=== PATIENT | female | born 1985 | race Caucasian/White ===

== ENCOUNTER → 2019-03-27 08:40 | Outpatient (BNVA) | payer BC, SELFPAY | PROVIDERS: Family Provider Registered Nurse; PCP Registered Nurse; Visit Provider Obstetrics & Gynecology | DX: R10.2 Pelvic and perineal pain (principal) | CPT/HCPCS: 81003; 87086 ==

== ENCOUNTER 2019-11-28 08:25 | Outpatient (CLI) | payer BC, SELFPAY ==
--- NOTE | 2019-11-28 08:33 | MR_ITS ---
WS: [id number] MRI HEAD WITH CONTRAST TECHNIQUE: Sagittal T1, T2 axial, T2 axial FLAIR, axial susceptibility weighted imaging, axial diffus ion weighted images, and coronal T2 images were obtained. Pre and post-T1 axial and post T1 coronal i mages. ADC and FSPGR images. CLINICAL INFORMATION: OTALGIA,BILATERAL COMPARISON: None. FINDINGS: Paranasal sinuses and mastoid air cells are well aerated. No evidence of sinusitis. No evidence of re stricted diffusion to suggest acute ischemia. Ventricular system and basal cisterns are patent. No he mosiderin on susceptibly weighted images. One or 2 tiny punctate foci of T2 hyperintensity in the sub cortical white matter. No suspicious intracranial signal abnormalities. Normal optic chiasm and pituitary infundibulum. Cavernous sinuses and Meckel's cave are normal in aleksandar earance. Temporal lobes and hippocampal formations are normal in appearance. No evidence of mesial te mporal sclerosis. No abnormal gadolinium enhancement. Normal visualized dural venous sinuses. MR/MR head wo/w con [id number] IMPRESSION: 1. No evidence of restricted diffusion to suggest acute ischemia. 2. No suspicious intracranial signal abnormalities. 3. Paranasal sinuses and mastoid air cells are well aerated. 4. Normal optic chiasm and pituitary infundibulum. 5. No hemosiderin on the susceptibly weighted images. 6. No abnormal gadolinium enhancement.
== END 2019-11-28 08:26 | disposition home or self-care (01) ==
LOC: RADSHAW 08:30
PROVIDERS: PCP Registered Nurse; Visit Provider Specialist
DX: H92.03 Otalgia, bilateral (principal)
CPT/HCPCS: 70553; A9579

== ENCOUNTER → 2020-02-09 11:20 | Outpatient (BNVA) | payer BC, SELFPAY | PROVIDERS: PCP Registered Nurse; Visit Provider Obstetrics & Gynecology | DX: Z34.90 Encounter for supervision of normal pregnancy, unspecified, unspecified trimester (principal); E89.41 Symptomatic postprocedural ovarian failure; N94.10 Unspecified dyspareunia; N64.3 Galactorrhea not associated with childbirth; R30.0 Dysuria | CPT/HCPCS: 81000; 84146; 84443; 87086 ==

== ENCOUNTER 2020-04-21 10:40 | Outpatient (CLI) | payer BC, SELFPAY ==
--- NOTE | 2020-04-21 10:52 | XR_ITS ---
WS: [id number] Exam: XR chest 2V* [id number] Date/Time of Exam: 04/21/2020 10:52 AM Reason For Exam: SHORTNESS OF BREATH/COUGH Comparison 08/22/2018. Findings: The lungs are clear and fully expanded. Costophrenic angles are sharp. No infiltrates. Bronchovascula r relief appears normal. Cardiac silhouette is unremarkable. Bony elements are intact. XR/XR chest 2V* [id number] IMPRESSION: Unremarkable chest radiograph.
== END 2020-04-21 10:41 | disposition home or self-care (01) ==
LOC: RAD 10:43
PROVIDERS: PCP Registered Nurse; Visit Provider Registered Nurse
DX: R06.02 Shortness of breath (principal); R05 Cough
CPT/HCPCS: 71046

== ENCOUNTER 2020-04-22 18:44 | Emergency (ER) | payer BC, SELFPAY ==
--- NOTE | 2020-04-22 19:34 | XR_ITS ---
WS: [id number] CHEST 2 VIEWS HISTORY: cough COMPARISON: 04/21/2020 Lungs: Clear with no abnormality. No pleural effusion or pneumothorax. Cardiac size: Normal. Mediastinum/Aorta: Normal mediastinum. Bones: Normal. XR/XR chest 2V* [id number] IMPRESSION: Normal chest.
[2020-04-22 19:45] VITALS: BP 145/83; PULSE 89; RESP 14; TEMP 36.6; O2SAT 99; BMI 27.4
[2020-04-22 20:39] VITALS: BP 137/87; PULSE 91; O2SAT 97
--- NOTE | 2020-04-22 21:08 | ED_ITS ---
HPI - URI/Sore Throat General: Chief Complaint: Upper Respiratory Infection Stated Complaint: headache/cough/covid - Time Seen by Provider: 04/22/20 20:27 Source: patient and family Mode of arrival: ambulatory Limitations: no limitations History of Present Illness: HPI Narrative: The patient is a 34-year-old female who has had a cough and upper respiratory tract symptoms for about 3 weeks. She has been to her primary care provider and has been given 2 rounds of antibiotics with no improvement in her symptoms. She denies any fever but has a headache from the coughing. She also has some generalized weakness. She does not smoke and has no history of respiratory illness. She was seen by her PCP yesterday and got tested for COVID 19, and she tested negative. She also had some blood work and CXR done. I looked at her records from her PCP yesterday. MD elicited complaint: cough and nasal congestion Onset (ago): week(s) (3) Consistency: constant Severity: moderate Able to tolerate fluids by mouth: Yes Exacerbating factors: nothing Relieving factors: nothing Associated symptoms: Reports cough and headache(s); Deny abdominal pain, change in voice, chills, chest pain, congestion, diarrhea, epistaxis, ear or mastoid pain, fever(s), myalgias, nasal congestion, nausea, rash, rhinorrhea, short of breath, sinus pain, stiffness, sore throat or vomiting Review of Systems General: Reports: 10 or more systems reviewed and unremarkable except in HPI and below Const: Denies: fever(s) or chills Eyes: Denies: change in vision or blurry vision ENMT: Denies: ear or mastoid pain, nasal congestion, epistaxis or sinus pain Card: Denies: chest pain Resp: Denies: dyspnea, productive cough or non-productive cough GI: Denies: abdominal pain, nausea, vomiting or diarrhea : Denies: flank pain, difficulty voiding, dysuria, urinary frequency, urinary urgency or urinary hesitancy Musc: Denies: neck pain, back pain or extremity swelling Skin/Breast: Denies: rash, pruritus or erythema Neuro: Reports: headache(s) Endo: Denies: polyuria, polydipsia or tired all the time [facility] ED PFSH: Medical History Endometriosis of pelvis Found at time of appendectomy. Treated with hormonal suppression. Had LAVH with BSO on 01/07/2019. Surgical menopause, symptomatic (01/07/19) Status post LAVH with BSO for endometriosis. Started on HRT after surgery. Surgical History History of breast augmentation (~2015) Performed in [place], [place] History of laparoscopic appendectomy (08/22/18) Performed by Dr. Interiano at [facility] in [place], [place] History of laparoscopic-assisted vaginal hysterectomy (01/07/19) LAVH with BSO. Dx: Endometriosis. Performed by Dr. Simon at [facility] in [place], [place] History of laparoscopy (08/22/18) with cautery of endometriosis. Performed at time of appendectomy. Performed by Dr. Simon at [facility]. Incidental finding at time of appendectomy. History of tonsillectomy Family History Unknown Diabetes maternal side of the family Heart disease paternal side of the family Social History Smoking and tobacco status: never smoked Alcohol intake: never Physical Exam Const: COMMON NORMALS: no acute distress, average body habitus, patient oriented x3, no limitations, healthy appearing, alert and well nourished HENMT: COMMON NORMALS: normocephalic, atraumatic and moist oral mucous membranes HEAD & SCALP: normocephalic and atraumatic Neck/C-Spine: COMMON NORMALS: no meningeal signs and no JVD Resp: COMMON NORMALS: normal respiratory effort, No retractions, No use of accessory muscles, clear to auscultation bilaterally and percussion normal AUSCULTATION: clear to auscultation bilaterally PERCUSSION: percussion normal Cardio: COMMON NORMALS: no JVD, regular rate, regular rhythm, S1 normal heart sound present, S2 normal heart sound present, No gallops present (Cardio), No clicks present (Cardio), No murmurs present (Cardio), No rub (Cardio) and Peripheral pulses 2+ throughout RATE: regular rate RHYTHM: regular rhythm HEART SOUNDS: S1 normal heart sound present and S2 normal heart sound present PERIPHERAL PULSES: Peripheral pulses 2+ throughout GI: COMMON NORMALS: Normal to inspection, nondistended, normoactive bowel sounds present, Soft to palpation, non-tender, No hepatosplenomegaly present, no masses and no bruits PALPATION: Yes Soft to palpation and Yes No hepatosplenomegaly present Extremity: COMMON NORMALS: normal to inspection, full ROM, capillary refill normal, no calf tenderness and no pedal edema Neuro: COMMON NORMALS: patient oriented x3 SENSORIUM/ORIENTATION: Yes alert MENINGEAL SIGNS: Yes no meningeal signs Skin: COMMON NORMALS: no rashes or lesions noted, no wounds, turgor normal, no jaundice, no petechiae and no mottling GENERAL SKIN EXAM: no rashes or lesions noted and turgor normal Course Reevaluation(s): Reevaluation #1: I discussed her lab results from her PCPs office yesterday. Also discussed her x-ray findings with her. Nothing acute found. We will discharge her home with a prescription for cough medication. Advised that she likely has bronchitis. Explained to her that it may take up to 12 weeks for the cough to resolve. She voiced understanding and is in agreement with the plan Time: 21:09 Vital Signs: Vital signs: Vital Signs Temperature 97.9 F 04/22/20 19:45 Pulse Rate 86 04/22/20 21:39 Respiratory Rate 14 04/22/20 19:45 Blood Pressure 131/88 04/22/20 21:39 Pulse Oximetry 96 04/22/20 21:39 MDM - URI/Sore Throat MDM Narrative: Medical decision making narrative: Patient with clinical features consistent with bronchitis. Evaluation is unremarkable. She is discharged home with a prescription for promethazine with codeine. She is to f/u with her PCP. Medical Records: Attestation: I reviewed the patient's medical records. Lab Data: Attestation: I reviewed the patient's lab results. Imaging Data^: CXR: Attestation: I personally reviewed and interpreted this imaging study as follows: My impression: No acute findings. Discharge Plan Discharge Patient Disposition: Home Clinical Impression: Acute bronchitis Qualifiers: Bronchitis organism: unspecified organism Qualified Code(s): J20.9 - Acute bronchitis, unspecified Condition: Stable Prescriptions: New promethazine-codeine 6.25-10 mg/5 mL syrup 5 ml PO Q6H PRN (Reason: cough) Qty: 473 RF: 0 Continued estradiol 1 mg tablet 1 mg PO DAILY Qty: 90 RF: 3 azithromycin 250 mg tablet See Rx Instructions PO .COMPLEX Qty: 6 RF: 0 methylprednisolone [Medrol (Gamaliel)] 4 mg tablets,dose pack See Rx Instructions PO PER PKG DIR Qty: 21 RF: 0 amitriptyline 50 mg tablet 50 mg PO BID Qty: 60 RF: 1 medroxyprogesterone 2.5 mg tablet 2.5 mg PO DAILY Qty: 30 RF: 0 Discharge Orders: Discharge ED (Routine); Ordered 04/22/20 Ordered By: Bandar Bauer Referrals: Ifeoma Araujo FNP [Primary Care Provider] - 1-3 days Patient Instructions: Acute Bronchitis (ED), Opioid Safety Activity Restrictions/Additional Instructions: Return for any new or worsening symptoms. Follow-up with your primary care provider within 3 days. Take the cough medicine as needed for cough. Unfortunately it might take up to 12 weeks for your symptoms to resolve. Coding Level of Care Code ED Rn Interventional for Leigh Padgett
[2020-04-22 21:31] VITALS: BP 131/88; PULSE 87; O2SAT 96
[2020-04-22] MEDS: benzonatate 100 mg Capsule 200 MG PO (21:32)
[2020-04-22 21:39] VITALS: BP 131/88; PULSE 86; O2SAT 96
[2020-04-22] MEDS: ketorolac 30 mg/mL INJ IM (21:40)
== END 2020-04-22 21:43 | disposition home or self-care (01) ==
PROVIDERS: Emergency Provider Family Medicine; PCP Registered Nurse
DX: J20.9 Acute bronchitis, unspecified (principal)
CPT/HCPCS: 71046; 96372; 99283; J1885

== ENCOUNTER → 2020-06-01 10:15 | Outpatient (BNVA) | payer BC, SELFPAY | PROVIDERS: PCP Registered Nurse; Visit Provider Emergency Medicine | DX: J02.9 Acute pharyngitis, unspecified (principal) | CPT/HCPCS: 87071; 87880 ==

== ENCOUNTER 2021-02-03 00:01 | Emergency (ER) | payer BC, SELFPAY ==
[2021-02-03 00:10] VITALS: BP 104/66; PULSE 100; RESP 18; TEMP 36.2; O2SAT 100; BMI 23.9
--- NOTE | 2021-02-03 00:20 | ED_ITS ---
HPI - Headache General: Chief Complaint: Headache Stated Complaint: headache Time Seen by Provider: 02/03/21 00:15 History of Present Illness: HPI Narrative: 35-year-old female comes in today with complaints of headache in the frontal sinus and bilateral anterior face. Patient reports she was diagnosed with strep this morning. Patient also has a history of chronic headaches. Patient was started on antibiotic today. Patient appears mildly unwell but not toxic. Patient is alert and oriented. Skin is warm and dry. Review of Systems General: Reports: 10 or more systems reviewed and unremarkable except in HPI and below Neuro: Reports: headache(s) PFSH ED PFSH: Medical History Abnormal increased muscle tightness Anxiety and depression Chronic headaches Dyspareunia in female Dysuria Encounter for routine gynecological examination Endometriosis of pelvis Found at time of appendectomy. Treated with hormonal suppression. Had LAVH with BSO on 01/07/2019. Galactorrhea Reaction to chronic stress Surgical menopause, symptomatic (01/07/19) Status post LAVH with BSO for endometriosis. Started on HRT after surgery. Surgical History History of breast augmentation (~2015) Performed in [place], [place] History of laparoscopic appendectomy (08/22/18) [place]. Interiano [place] [facility] [place], [place] History of laparoscopic-assisted vaginal hysterectomy (01/07/19) LAVH with BSO. Dx: Endometriosis. Per[place] Dr. Simon [place] [facility] [place], [place] History of laparoscopy (08/22/18) with cautery of endometriosis. Performed at time of appendectomy. [place]. Simon [place] [facility] Incidental finding at time of appendectomy. History of tonsillectomy Family History Unknown Diabetes maternal side of the family Heart disease paternal side of the family Social History Alcohol intake: current Alcohol intake frequency: holidays/special occasions only Marital status: Number of children: 2 Number of grandchildren: 0 Current occupational status: employed Physical Exam Const: COMMON NORMALS: no acute distress and patient oriented x3 GENERAL APPEARANCE: cooperative HENMT: COMMON NORMALS: normocephalic, TM's normal bilaterally and Normal external nose present HEAD & SCALP: normal to inspection and normocephalic NOSE: Normal external nose present TYMPANIC MEMBRANE: TM's normal bilaterally MOUTH: Normal oral and palatal mucosa present THROAT: posterior oropharynx abnormal erythema Eye: GENERAL EYE: appearance normal, both eyes and all related structures Neck/C-Spine: COMMON NORMALS: full ROM CERVICAL SPINE: Yes Paracervical muscle tenderness Lymph: LYMPHATIC: no lymphadenopathy noted Chest: COMMONS NORMALS: normal inspection of the chest Resp: COMMON NORMALS: normal respiratory effort EFFORT & INSPECTION: Yes able to speak in complete sentences Cardio: COMMON NORMALS: regular rate and regular rhythm RATE: regular rate RHYTHM: regular rhythm GI: COMMON NORMALS: non-tender : COMMON NORMALS: Yes no CVA tenderness BLADDER/KIDNEY EXAM: Yes no CVA tenderness Back/Pelvis: COMMON NORMALS: no CVA tenderness and thoracic and lumbar spine normal to inspection Extremity: COMMON NORMALS: normal to inspection Neuro: COMMON NORMALS: patient oriented x3 and moves all extremities Psych: COMMON NORMALS: mental status grossly normal and cooperative Skin: COMMON NORMALS: no rashes or lesions noted GENERAL SKIN EXAM: no rashes or lesions noted Course ED course: 0130, patient reports headache has improved but continues to have the thumb pain. We will treat with 2 mg of morphine for further pain relief. It has been about 30 minutes since patient was given Toradol, I would expect improvement with further pain relief within the next 30 minutes. 0230, patient discharged home with significant improvement in pain. Recommend continue with antibiotic and follow-up with primary care. Vital Signs: Vital signs: Vital Signs Temperature 97.1 F L 02/03/21 00:10 Pulse Rate 100 02/03/21 02:34 Respiratory Rate 20 H 02/03/21 02:34 Blood Pressure 108/70 02/03/21 02:34 Pulse Oximetry 100 02/03/21 02:34 MDM - Headache MDM Narrative: Medical decision making narrative: Patient comes in tonight with complaints of headache. Patient does have a history of similar type headaches. Patient was starting to have a headache this morning and was seen by primary care and had a strep test that tested positive for strep pharyngitis. Exam notes some posterior cervical muscle tenderness. Patient has good range of motion of the neck. Posterior pharynx is erythematous. Differential diagnosis includes tension headache, migraine headache, strep pharyngitis. No nuchal rigidity or signs of meningismus was noted. Patient was treated with IV fluids, dexamethasone 10 mg, Toradol, and Reglan and Benadryl for her headache. Patient had improvement of headache but continues to have pain and required 2 mg of morphine for further pain control. We were able to eric the headache further and patient was able to be discharged home for rest. Patient was recommended to follow-up with primary care in the morning. Discharge Plan Discharge Patient Disposition: Home Clinical Impression: Acute streptococcal pharyngitis Headache Qualifiers: Headache type: unspecified Headache chronicity pattern: unspecified pattern Intractability: intractable Qualified Code(s): R51.9 - Headache, unspecified Condition: Stable Prescriptions: No Action estradiol 1 mg tablet 1 mg PO DAILY Qty: 90 RF: 3 bupropion HCl 200 mg tablet sustained-release 12 hr 200 mg PO QAM Qty: 30 RF: 4 tizanidine 2 mg capsule 2 mg PO BID PRN (Reason: muscle tightness and spasms) Qty: 60 RF: 1 ibuprofen 800 mg tablet 800 mg PO Q8H Qty: 60 RF: 3 azithromycin 250 mg tablet See Rx Instructions PO .COMPLEX Qty: 6 RF: 0 Discharge Orders: Discharge ED (Routine); Ordered 02/03/21 Ordered By: Felipe De Los Santos Referrals: Montana Shin MD [Primary Care Provider] - Discharge Diet: Usual diet Discharge Activity: Increase activity as tolerated Patient Instructions: Strep Throat (ED), Opioid Safety Activity Restrictions/Additional Instructions: And is important to drink plenty of water and fluids when ill. Continue with antibiotics as directed. Use acetaminophen and ibuprofen for pain. Follow-up with primary care for further instruction. Return to the ER for new concerns. Coding Level of Care Code ED Slide Fastener Repairer for Leigh Fwd Exam Comprehensive
[2021-02-03] MEDS: sodium chloride 0.9% 1,000 ML 999 ML IV (00:39)
[2021-02-03] MEDS: diphenhydrAMINE 50 mg/mL SDV 1mL 25 MG IVP (00:47)
[2021-02-03] MEDS: dexamethasone 10 mg/mL INJ IVP (00:47)
[2021-02-03] MEDS: ketorolac 30 mg/mL INJ IVP (00:47)
[2021-02-03] MEDS: metoclopramide 5 mg/mL SDV 2 mL 10 MG IVP (00:48)
[2021-02-03] MEDS: morphine 4 mg/mL SDV 1 mL 2 MG IVP (01:38)
[2021-02-03] MEDS: sodium chloride 0.9% 500 ML 999 ML IV (01:50)
[2021-02-03 02:34] VITALS: BP 108/70; PULSE 100; RESP 20; O2SAT 100
== END 2021-02-03 02:37 | disposition home or self-care (01) ==
PROVIDERS: Emergency Provider Nurse Practitioner Family; PCP Family Medicine Adult Medicine
DX: R51.9 Headache, unspecified (principal); J02.0 Streptococcal pharyngitis
CPT/HCPCS: 96361; 96374; 96375; 99284; J1100; J1200; J1885; J2270; J2765; J7030; J7040

== ENCOUNTER 2023-03-22 09:26 | Emergency (ER) | payer BC, SELFPAY ==
[2023-03-22 09:39] VITALS: BP 114/86; PULSE 75; RESP 16; O2SAT 97
--- NOTE | 2023-03-22 09:56 | CT_ITS ---
WS: [id number] CT HEAD TECHNIQUE: Noncontrast CT of the head obtained from the skullbase to the vertex. CLINICAL INFORMATION: trauma COMPARISON: MRI 11/28/2019 DLP: 1022.[address] scans at [facility] use at least one of these dose optimization techniques: automated e xposure control; mA and/or kV adjustment per patient size (includes targeted exams where dose is matc hed to clinical indication); or iterative reconstruction. FINDINGS: No evidence of intracranial hemorrhage or mass effect. Ventricular system and basal cisterns are hollins nt. No extra-axial fluid collections. No evidence of mass or mass effect. Normal boston-white different iation. Incidental slightly low-lying cerebellar tonsils. Paranasal sinuses and mastoid air cells are well aerated. .Normal visualized soft tissues. IMPRESSION: 1. No evidence of intracranial hemorrhage or mass effect. 2. No acute intracranial findings.
--- NOTE | 2023-03-22 09:56 | XRR_ITS ---
PROCEDURE INFORMATION: Exam: XR Cervical Spine Exam date and time: 03/22/2023 10:01 AM Age: 37 years old Clinical indication: Injury or trauma; Other: Possible head injury; Injury details: PT arrives pov with chief complaint of head injury from fall this am. PT states slipped and feel and hit head on truck around 0500 this am. PT states headache, nausea since. PT states took 1g tylenol around 0530 TECHNIQUE: Imaging protocol: Radiologic exam of the cervical spine. Views: 2 or 3 views. COMPARISON: CR XR chest 2V* [id number] 04/22/2020 8:06 PM FINDINGS: Bones/joints: Straightening, loss of usual cervical lordosis, possibly evidence of muscle spasm. No displaced fracture nor dislocation seen of visualized portions cervical spine. Cervical vertebral body height, disc space height, alignment appear grossly maintained otherwise. Soft tissues: Prevertebral soft tissues unremarkable. Cervical airway appears midline. Lungs: Visualized portions lung apices included appear clear bilaterally. XR/XR cervical spine 3V* [id number] IMPRESSION: Straightening, loss of usual cervical lordosis. No displaced fracture seen of visualized portions cervical spine.
--- NOTE | 2023-03-22 10:16 | W.ED.HEATRA ---
HPI - Head Injury General: Chief complaint: Head Injury Stated complaint: fell, hit head Time Seen by Provider: 03/22/23 09:31 Source: patient Mode of arrival: ambulatory History of Present Illness: 37-year-old female who was getting out of her vehicle at work stumbled fell and hit the back of her head and left occipital area no loss consciousness she has been a little bit nauseated has a slight headache no vomiting. She is not on any anticoagulants denies any other injury MD Complaint: head injury Onset (ago): minute(s) Mechanism of Injury: fall Place: work Loss of Consciousness: no Location of injury: occipital Severity: mild Associated symptoms: Deny amnesia, confusion, nausea, neck pain, numbness, syncope, tingling, vertigo, visual changes, vomiting or weakness Review of Systems Const: Denies: fever(s) or chills Card: Denies: syncope Resp: Denies: dyspnea GI: Denies: nausea or vomiting : Denies: dysuria, urinary frequency or urinary urgency Musc: Denies: neck pain Skin/Breast: Denies: rash Neuro: Denies: vertigo or confusion PFSH ED PFSH: Medical History Abnormal increased muscle tightness Anxiety and depression Chronic headaches Cough Dyspareunia in female Dysuria Encounter for routine gynecological examination Endometriosis of pelvis Found at time of appendectomy. Treated with hormonal suppression. Had LAVH with BSO on 01/07/2019. Galactorrhea Post-viral cough syndrome Reaction to chronic stress Surgical menopause, symptomatic (01/07/19) Status post LAVH with BSO for endometriosis. Started on HRT after surgery. Surgical History History of laparoscopic-assisted vaginal hysterectomy (01/07/19) LAVH with BSO. Dx: Endometriosis. Performed by Dr. Simon at [facility] in [place], [place] History of laparoscopy (08/22/18) with cautery of endometriosis. Performed at time of appendectomy. Performed by Dr. Simon at [facility]. Incidental finding at time of appendectomy. History of laparoscopic appendectomy (08/22/18) Performed by Dr. Interiano at [facility] in [place], [place] History of breast augmentation (~2015) Performed in [place], [place] History of tonsillectomy Family History Unknown Diabetes maternal side of the family Heart disease paternal side of the family Social History Alcohol intake: current Alcohol intake frequency: holidays/special occasions only Substance/Drug Use: never Marital status: Number of children: 2 Number of grandchildren: 0 Current occupational status: employed Physical Exam Const: COMMON NORMALS: no acute distress GENERAL APPEARANCE: cooperative and comfortable ORIENTATION/CONSCIOUSNESS: Yes awake, Yes oriented to person, Yes oriented to place and Yes oriented to time HENMT: COMMON NORMALS: normocephalic, atraumatic and hearing grossly normal bilaterally HEAD & SCALP: normocephalic and atraumatic Resp: COMMON NORMALS: normal respiratory effort, No retractions, No use of accessory muscles and clear to auscultation bilaterally AUSCULTATION: clear to auscultation bilaterally Cardio: COMMON NORMALS: regular rate, regular rhythm and No murmurs present (Cardio) RATE: regular rate RHYTHM: regular rhythm GI: COMMON NORMALS: Soft to palpation and No hepatosplenomegaly present AUSCULTATION: Yes normoactive bowel sounds PALPATION: Yes Soft to palpation, No Tenderness to palpation present (GI), No Guarding due to palpation present (GI) and Yes No hepatosplenomegaly present Extremity: COMMON NORMALS: normal to inspection, capillary refill normal, no clubbing, cyanosis or edema, no calf tenderness and no pedal edema Neuro: SENSORIUM/ORIENTATION: Yes oriented to person, Yes oriented to place and Yes oriented to time Skin: COMMON NORMALS: no rashes or lesions noted GENERAL SKIN EXAM: no rashes or lesions noted Course Vital Signs: Vital signs: Vital Signs Pulse Rate 75 03/22/23 09:39 Respiratory Rate 16 03/22/23 09:39 Blood Pressure 114/86 03/22/23 09:39 Pulse Oximetry 97 03/22/23 09:39 Oxygen Delivery Me thod Room Air 03/22/23 09:39 MDM - Head Injury Medcial Decision Making CT and x-rays of the neck are unremarkable. Neurologic exam no focal deficits noted discharge home mild concussion Tylenol or Profen as needed follow-up as needed Lab Data Radiology Impressions Cervical Spine X-Ray 03/22/23 09:56 IMPRESSION: Straightening, loss of usual cervical lordosis. No displaced fracture seen of visualized portions cervical spine. All radiology interpretation(s) finalized by discharge Discharge Plan Discharge Patient Disposition: Home Clinical Impression: Concussion without loss of consciousness Condition: Stable Prescriptions: No Action estradiol 1 mg tablet 1 mg PO DAILY Qty: 90 3RF tizanidine 2 mg capsule 2 mg PO BID PRN (Reason: muscle tightness and spasms) Qty: 60 1RF ibuprofen 800 mg tablet 800 mg PO Q8H Qty: 60 3RF Rx Instructions: take with food. guaifenesin 600 mg tablet extended release 12hr 600 mg PO BID PRN (Reason: cough) Qty: 20 1RF bupropion HCl [Wellbutrin XL] 300 mg tablet extended release 24 hr 300 mg PO QAM doxycycline hyclate 100 mg tablet 100 mg PO BID 7 Days Qty: 14 0RF erythromycin 5 mg/gram (0.5 %) ointment 1 applic ophthalmic (eye) QID 7 Days Qty: 3.5 0RF dextromethorphan polistirex [12-Hour Cough Relief] 30 mg/5 mL suspension,extended rel 12 hr 10 ml PO Q12H PRN (Reason: cough) Qty: 89 0RF Discharge Orders: Discharge ED (Routine); Ordered 03/22/23 Ordered By: Last Edwards Referrals: Ifeoma Araujo FNP [Primary Care Provider] - Discharge Diet: Usual diet Discharge Activity: Increase activity as tolerated Patient Instructions: Opioid Safety, Pain Management Activity Restrictions/Additional Instructions: Thank you for choosing [facility] for your healthcare needs today. Please realize this is an emergency room and that we are providing you with a medical screening exam and this may not be complete and all inclusive of all the testing and or work up that you may need to determine your ailment or severity of your illness. It is very important that you follow up as instructed or that you return to the Emergency Department should you have concerns or if your condition changes or worsens in any way. Coding Level of Care Code ED Cloth D[employer] Range Operator for Leigh Padgett
== END 2023-03-22 10:42 | disposition home or self-care (01) ==
PROVIDERS: Emergency Provider Family Medicine; PCP Registered Nurse
DX: S06.0X0A Concussion without loss of consciousness, initial encounter (principal); W01.0XXA Fall on same level from slipping, tripping and stumbling without subsequent striking against object, initial encounter
CPT/HCPCS: 70450; 72040; 99284

== ENCOUNTER 2023-05-30 20:01 | Emergency (ER) | payer BC, SELFPAY ==
[2023-05-30 20:07] VITALS: PULSE 87; RESP 16; TEMP 36.7; O2SAT 96; BMI 28.0
--- NOTE | 2023-05-30 20:25 | W.ED.HA ---
HPI - Headache General: Chief Complaint: Headache Stated Complaint: migrane for a couple days Time Seen by Provider: 05/30/23 20:13 Source: patient Mode of arrival: ambulatory Limitations: no limitations History of Present Illness: 37-year-old female states she has a history of migraines states she had a headache over the last 2 days. States this feels like her previous migraines rates her headache a 6 out of 10 currently she has photophobia and phonophobia Associated symptoms: Reports nausea; Deny chest pain, fever(s), rash or vomiting Review of Systems Const: Denies: fever(s), chills, body aches or change in appetite ENMT: Denies: throat pain or dental pain Card: Denies: chest pain Resp: Denies: dyspnea GI: Reports: nausea; Denies: abdominal pain, vomiting or diarrhea Musc: Denies: neck pain or back pain Skin/Breast: Denies: rash Neuro: Reports: headache(s) PFSH ED PFSH: Medical History Post-viral cough syndrome Cough Chronic headaches Anxiety and depression Abnormal increased muscle tightness Reaction to chronic stress Dysuria Galactorrhea Dyspareunia in female Encounter for routine gynecological examination Surgical menopause, symptomatic (01/07/19) Status post LAVH with BSO for endometriosis. Started on HRT after surgery. Endometriosis of pelvis Found at time of appendectomy. Treated with hormonal suppression. Had LAVH with BSO on 01/07/2019. Surgical History History of laparoscopic-assisted vaginal hysterectomy (01/07/19) LAVH with BSO. Dx: Endometriosis. Performed by Dr. Simon at [facility] in [place], [place] History of laparoscopy (08/22/18) with cautery of endometriosis. Performed at time of appendectomy. Performed by Dr. Simon at [facility]. Incidental finding at time of appendectomy. History of laparoscopic appendectomy (08/22/18) Performed by Dr. Interiano at [facility] in [place], [place] History of breast augmentation (~2015) Performed in [place], [place] History of tonsillectomy Family History Unknown Diabetes maternal side of the family Heart disease paternal side of the family Social History Alcohol intake: current Alcohol intake frequency: holidays/special occasions only Substance/Drug Use: never Marital status: Number of children: 2 Number of grandchildren: 0 Current occupational status: employed Physical Exam Const: COMMON NORMALS: no acute distress, patient oriented x3 and healthy appearing HENMT: COMMON NORMALS: normocephalic and atraumatic HEAD & SCALP: normocephalic and atraumatic Eye: COMMON NORMALS: Equal, round and reactive pupils present and EOMs intact bilaterally PUPIL: Yes Equal, round and reactive pupils present Neck/C-Spine: COMMON NORMALS: full ROM and supple Chest: COMMONS NORMALS: normal inspection of the chest Resp: COMMON NORMALS: normal respiratory effort, No retractions, No use of accessory muscles and clear to auscultation bilaterally AUSCULTATION: clear to auscultation bilaterally Cardio: COMMON NORMALS: regular rate, regular rhythm and No murmurs present (Cardio) RATE: regular rate RHYTHM: regular rhythm Extremity: COMMON NORMALS: normal to inspection and full ROM Neuro: COMMON NORMALS: patient oriented x3, moves all extremities and no focal motor deficits Psych: COMMON NORMALS: mental status grossly normal, Normal thought process present and cooperative THOUGHT PROCESS: Normal thought process present Skin: COMMON NORMALS: no rashes or lesions noted and no wounds GENERAL SKIN EXAM: no rashes or lesions noted Course Vital Signs: Vital signs: Vital Signs Temperature 98.0 F 05/30/23 20:07 Pulse Rate 87 05/30/23 20:07 Respiratory Rate 16 05/30/23 20:07 Pulse Oximetry 96 05/30/23 20:07 MDM - Headache Medical Decision Making Patient presents with a headache is likely migraine headache she has a history of migraine headaches patient has no signs of meningitis or subarachnoid hemorrhage she feels improved here after IV meds she is stable for discharge follow-up with PCP return if worsening. Medical Records I reviewed the patient's medical records. No radiology studies performed this visit Discharge Plan Discharge Patient Disposition: Home Clinical Impression: Headache Condition: Stable Prescriptions: No Action estradiol 1 mg tablet 1 mg PO DAILY Qty: 90 3RF tizanidine 2 mg capsule 2 mg PO BID PRN (Reason: muscle tightness and spasms) Qty: 60 1RF ibuprofen 800 mg tablet 800 mg PO Q8H Qty: 60 3RF Rx Instructions: take with food. guaifenesin 600 mg tablet extended release 12hr 600 mg PO BID PRN (Reason: cough) Qty: 20 1RF bupropion HCl [Wellbutrin XL] 300 mg tablet extended release 24 hr 300 mg PO QAM doxycycline hyclate 100 mg tablet 100 mg PO BID 7 Days Qty: 14 0RF erythromycin 5 mg/gram (0.5 %) ointment 1 applic ophthalmic (eye) QID 7 Days Qty: 3.5 0RF dextromethorphan polistirex [12-Hour Cough Relief] 30 mg/5 mL suspension,extended rel 12 hr 10 ml PO Q12H PRN (Reason: cough) Qty: 89 0RF Discharge Orders: Discharge ED (Routine); Ordered 05/30/23 Ordered By: Luis Felipe Addison Referrals: Ifeoma Araujo FNP [Primary Care Provider] - 1-3 days Discharge Diet: Advance as tolerated Discharge Activity: Resume usual activity Patient Instructions: Migraine Headache (ED) Coding Level of Care Code ED Aviation Mechanic for Leigh Padgett
[2023-05-30] MEDS: diphenhydrAMINE 50 mg/mL SDV 1mL IVP (20:33)
[2023-05-30] MEDS: metoclopramide 5 mg/mL SDV 2 mL 10 MG IVP (20:33)
[2023-05-30] MEDS: ketorolac 30 mg/mL INJ 15 MG IVP (20:33)
[2023-05-30] MEDS: sodium chloride 0.9% 1,000 ML 999 ML IV (20:54)
[2023-05-30 21:35] VITALS: BP 131/79; PULSE 78; RESP 14; O2SAT 98
== END 2023-05-30 21:36 | disposition home or self-care (01) ==
PROVIDERS: Emergency Provider Emergency Medicine; PCP Registered Nurse
DX: R51.9 Headache, unspecified (principal)
CPT/HCPCS: 96361; 96374; 96375; 99284; J1200; J1885; J2765; J7030

== ENCOUNTER 2023-06-13 11:30 | Emergency (ER) | payer BC, SELFPAY ==
[2023-06-13 11:41] VITALS: BP 118/79; PULSE 90; RESP 18; TEMP 36.4; O2SAT 95
--- NOTE | 2023-06-13 12:12 | W.ED.ABDPA2 ---
HPI - Abdominal Pain General: Chief Complaint: Abdominal Pain Stated Complaint: back pain Time Seen by Provider: 06/13/23 12:09 Source: patient Mode of arrival: ambulatory History of Present Illness: 37-year-old female presents to the emergency room complaining of abdominal discomfort. She supposed to see neurosurgery tomorrow in [place] for a pinched nerve in her neck. She states that she can tell when her bladder is full so she just upset gets up and goes to the restroom several times a day but she has not had any known urinary retention. When she does go she is able to void completely. She denies any fecal incontinence. No loss of function of her extremities. She mostly focused on her abdominal discomfort and refers it to the lower pelvic area. She does not have any fecal incontinence. No fever sweats or chills. She has previously had hysterectomy and appendectomy. States the pain moves from time to time sometimes we have in the lower back on the right other times in the right lower quadrant anteriorly. MD elicited complaint: abdominal pain Pertinent past history: none Onset (ago): minute(s) Quality: cramping Exacerbating factors: nothing Relieving factors: nothing Associated Symptoms: Denies anorexia, belching, bloating, change in bowel habits, change in stool character, chills, coffee ground emesis, constipation, GI cramping, diarrhea, dyspepsia, dysuria, excessive flatus, fever(s), heartburn, hematochezia, hematuria, hematemesis, fecal incontinence, loose stools, melena, nausea, poor appetite, syncope and vomiting Review of Systems Const: Denies: fever(s) or chills Card: Denies: chest pain or syncope Resp: Denies: dyspnea GI: Denies: abdominal pain, nausea, vomiting, hematemesis, coffee ground emesis, heartburn, diarrhea, constipation, bloating, GI cramping, belching, excessive flatus, fecal incontinence, change in bowel habits, change in stool character, hematochezia or melena : Denies: dysuria, urinary frequency, urinary urgency or hematuria Musc: Denies: neck pain or back pain Skin/Breast: Denies: rash PFSH ED PFSH: Medical History Post-viral cough syndrome Cough Chronic headaches Anxiety and depression Abnormal increased muscle tightness Reaction to chronic stress Dysuria Galactorrhea Dyspareunia in female Encounter for routine gynecological examination Surgical menopause, symptomatic (01/07/19) Status post LAVH with BSO for endometriosis. Started on HRT after surgery. Endometriosis of pelvis Found at time of appendectomy. Treated with hormonal suppression. Had LAVH with BSO on 01/07/2019. Surgical History History of laparoscopic-assisted vaginal hysterectomy (01/07/19) LAVH with BSO. Dx: Endometriosis. [place] [facility] [place], [place] History of laparoscopy (08/22/18) with cautery of endometriosis. Performed at time of appendectomy. [place] [facility] Incidental finding at time of appendectomy. History of laparoscopic appendectomy (08/22/18) Per[place] Dr. Interiano [place] [facility] [place], [place] History of breast augmentation (~2015) Performed in [place], [place] History of tonsillectomy Family History Unknown Diabetes maternal side of the family Heart disease paternal side of the family Social History Alcohol intake: current Alcohol intake frequency: holidays/special occasions only Substance/Drug Use: never Marital status: Number of children: 2 Number of grandchildren: 0 Current occupational status: employed Physical Exam Const: COMMON NORMALS: no acute distress GENERAL APPEARANCE: cooperative ORIENTATION/CONSCIOUSNESS: Yes awake, Yes oriented to person, Yes oriented to place and Yes oriented to time HENMT: COMMON NORMALS: normocephalic, atraumatic and hearing grossly normal bilaterally HEAD & SCALP: normocephalic and atraumatic Resp: COMMON NORMALS: normal respiratory effort, No retractions, No use of accessory muscles and clear to auscultation bilaterally AUSCULTATION: clear to auscultation bilaterally Cardio: COMMON NORMALS: regular rate, regular rhythm and No murmurs present (Cardio) RATE: regular rate RHYTHM: regular rhythm GI: COMMON NORMALS: Soft to palpation and No hepatosplenomegaly present AUSCULTATION: Yes normoactive bowel sounds PALPATION: Yes Soft to palpation, No Tenderness to palpation present (GI), No Guarding due to palpation present (GI) and Yes No hepatosplenomegaly present Extremity: COMMON NORMALS: normal to inspection, capillary refill normal, no clubbing, cyanosis or edema, no calf tenderness and no pedal edema Neuro: SENSORIUM/ORIENTATION: Yes oriented to person, Yes oriented to place and Yes oriented to time Skin: COMMON NORMALS: no rashes or lesions noted GENERAL SKIN EXAM: no rashes or lesions noted Course Vital Signs: Vital signs: Vital Signs Temperature 97.6 F 06/13/23 11:41 Pulse Rate 99 06/13/23 15:14 Respiratory Rate 18 06/13/23 14:34 Blood Pressure 142/94 06/13/23 15:14 Pulse Oximetry 97 06/13/23 15:14 Oxygen Delivery Me thod Room Air 06/13/23 14:34 MDM - Abdominal Pain Medical Decision Making CT did not show any significant normality other than a moderate amount of constipation. Her bladder is not particularly distended. Her exam was unremarkable she has no red flag symptoms. No saddle paresthesias she has deep tendon reflexes +2 for the lower extremities sensation and vascular normal. She has previously had a hysterectomy she did have some blood in her urine but there is no sign of any nephrolithiasis hydronephrosis or masses in the kidneys or ureters. She does have a slightly elevated white count. She has an appointment with neurosurgery tomorrow. No other sick no other pathology noted on the CT of the abdomen. She has previously had appendectomy and hysterectomy. She has a small umbilical hernia the patient does not have any pain in the periumbilical area refers most of the lower abdomen. This bladder does not look distended on the CT. She has not noticed any blood in her urine she does not have any flank pain at the moment. Will culture the urine to evaluate further for bladder infection she not had any fever sweats chills is also confirmed with her she is not on prednisone recently. She should have her urine rechecked within the next week may need further eval of microscopic hematuria is persistent. Discharge patient home encouraged her to keep her appointment with neurosurgery tomorrow. Use laxative to relieve the constipation. Differential Diagnosis Likely abdominal pain and calculus of kidney Medical Records I reviewed the patient's medical records. Lab Data I reviewed the patient's lab results. 06/13/23 12:32 06/13/23 12:32 Labs/Radiology: Laboratory Results WBC 15.15 10^3/uL (3.29-11.43) H 06/13/23 12:32 RBC 4.78 10^6/uL (3.85-5.65) 06/13/23 12:32 Hgb 14.30 g/dL (11.27-16.99) 06/13/23 12:32 Hct 41.6 % (36-47) 06/13/23 12:32 MCV 87.0 fl (85-98) 06/13/23 12:32 MCH 29.9 pg (27-33) 06/13/23 12:32 MCHC 34.4 g/dL (30-55) 06/13/23 12:32 RDW 12.3 % (12.1-15.1) 06/13/23 12:32 Plt Count 375 10^3/cmm (157-399) 06/13/23 12:32 MPV 8.7 fL (7.4-10.4) 06/13/23 12:32 Neut % (Auto) 83.7 % 06/13/23 12:32 Lymph % (Auto) 10.9 % 06/13/23 12:32 [place] % (Auto) 4.1 % 06/13/23 12:32 Eos % (Auto) 0.2 % 06/13/23 12:32 Baso % (Auto) 0.3 % 06/13/23 12:32 Neut # (Auto) 12.68 10^3/uL (1.8-7.7) H 06/13/23 12:32 Lymph # (Auto) 1.7 10^3/uL (0.8-4.8) 06/13/23 12:32 [place] # (Auto) 0.6 10^3/uL (0.2-0.9) 06/13/23 12:32 Eos # (Auto) 0.0 10^3/uL (0.0-0.8) 06/13/23 12:32 Baso # (Auto) 0.1 10^3/uL (0.0-0.1) 06/13/23 12:32 Nucleated RBC % (auto) 0 % 06/13/23 12:32 Nucleated RBCs # 0.0 /100WBC 06/13/23 12:32 Sodium 135 mmol/L (136-145) L 06/13/23 12:32 Potassium 4.1 mmol/L (3.5-5.1) 06/13/23 12:32 Chloride 97 mmol/L (98-107) L 06/13/23 12:32 Carbon Dioxide 23 mmol/L (22-29) 06/13/23 12:32 Anion Gap 19.1 (5-19) H 06/13/23 12:32 BUN 20 mg/dL (6-20) 06/13/23 12:32 Creatinine 0.8 mg/dL (0.5-0.9) 06/13/23 12:32 GFR Calculation 80.7 mL/min (90-130) L 06/13/23 12:32 Glucose 143 mg/dL (65-115) H 06/13/23 12:32 Calculated Osmolality 285 mOsm/kg (285-295) 06/13/23 12:32 Calcium 10.0 mg/dL (8.5-10.5) 06/13/23 12:32 Total Bilirubin 0.6 mg/dL (0.15-1.2) 06/13/23 12:32 AST 22 U/L (0-32) 06/13/23 12:32 ALT 26 U/L (0-33) 06/13/23 12:32 Alkaline Phosphatase 161 U/L (35-105) H 06/13/23 12:32 Total Protein 8.5 g/dL (6.6-8.7) 06/13/23 12:32 Albumin 4.8 g/dL (3.5-5.2) 06/13/23 12:32 Globulin 3.7 g/dL (1.3-4.6) 06/13/23 12:32 Urine Color [place] (Yellow) A 06/13/23 13:17 Urine Appearance Clear (CLEAR) 06/13/23 13:17 Urine pH 6 (5-7) 06/13/23 13:17 Ur Specific [place] 1.015 (1.005-1.030) 06/13/23 13:17 Urine Protein Not tested (Negative) 06/13/23 13:17 Urine Glucose (UA) Norm (Normal) 06/13/23 13:17 Urine Ketones 1+ (Negative) H 06/13/23 13:17 Urine Blood 2+ (Negative) H 06/13/23 13:17 Urine Nitrate Not tested (Negative) A 06/13/23 13:17 Urine Bilirubin Not tested (Negative) 06/13/23 13:17 Urine Urobilinogen Not tested mg/dL (Negative) A 06/13/23 13:17 Ur Leukocyte Esterase Negative (Negative) 06/13/23 13:17 Urine RBC 15-25 /hpf (0-2) H 06/13/23 13:17 Urine WBC 0-4 /hpf (0-5) H 06/13/23 13:17 Ur Squamous Epith Cells 0-4 /hpf (0-5) H 06/13/23 13:17 Ur Transition Epith Cell 0-4 /hpf 06/13/23 13:17 Amorphous Sediment Not Reportable 06/13/23 13:17 Urine Bacteria 1+ /hpf (NONE) H 06/13/23 13:17 Urine Mucus Trace /hpf 06/13/23 13:17 All radiology interpretation(s) finalized by discharge Discharge Plan Discharge Patient Disposition: Home Clinical Impression: Constipation, Abdominal pain Condition: Stable Prescriptions: New lactulose 20 gram packet 20 g PO Q2H 1 Days Qty: 1 0RF Rx Instructions: until desired laxative effect No Action bupropion HCl [Wellbutrin XL] 300 mg tablet extended release 24 hr 300 mg PO QAM rizatriptan 10 mg tablet See Rx Instructions .ROUTE .COMPLEX Rx Instructions: TAKE ONE TABLET BY MOUTH EVERY 2 HOURS NEEDED FOR MIGRAINE, MAY REPEAT in TWO hours; max DOSE 30mg in 24 hours gabapentin 250 mg/5 mL solution 100 mg PO BID amitriptyline 50 mg tablet 50 mg PO BEDTIME meloxicam 7.5 mg tablet 7.5 mg PO DAILY ondansetron HCl 4 mg/5 mL solution 4 mg PO Q8H PRN (Reason: Nausea And Vomiting) estradiol 0.5 mg tablet 0.5 mg PO QAM tizanidine 2 mg capsule 2 mg PO Q8H PRN (Reason: muscle tightness and spasms) buspirone 5 mg tablet 5 - 10 mg PO BID PRN (Reason: Anxiety) alprazolam 1 mg tablet 0.5 - 1 mg PO TID PRN (Reason: Anxiety) multivitamin Tablet 1 tab PO DAILY PRN (Reason: unknown) magnesium citrate 85 mg Tablet,Chewable 170 mg PO .ONE TIME DOSE Discharge Orders: Discharge ED (Routine); Ordered 06/13/23 Ordered By: Last Edwards Referrals: Ifeoma Araujo FNP [Primary Care Provider] - Discharge Diet: Clear Liquid Discharge Activity: Increase activity as tolerated Patient Instructions: Abdominal Pain (ED), Opioid Safety, Pain Management Activity Restrictions/Additional Instructions: Thank you for choosing [facility] for your healthcare needs today. Please realize this is an emergency room and that we are providing you with a medical screening exam and this may not be complete and all inclusive of all the testing and or work up that you may need to determine your ailment or severity of your illness. It is very important that you follow up as instructed or that you return to the Emergency Department should you have concerns or if your condition changes or worsens in any way. You were seen today for abdominal discomfort. Showed moderate constipation no acute pathology. There is no sign of kidney stones or just small amount of blood in your urine urine will be cultured. Recheck if not improving recommend you keep your appointment with neurosurgery tomorrow. Coding Level of Care Code ED [employer] for Leigh Padgett
[2023-06-13] MEDS: ondansetron 2 mg/ML SDV 2 mL 4 MG IVP ×2 (12:30→14:05)
[2023-06-13] MEDS: sodium chloride 0.9% 1,000 ML 999 ML IV (12:30)
[2023-06-13 12:41] LABS: Basophils # 0.1 10^3/uL (0.0-0.1); Basophils % 0.3 %; Eosinophils % 0.2 %; Hematocrit 41.6 % (36-47); Lymphocytes # 1.7 10^3/uL (0.8-4.8); Lymphocytes % 10.9 %; Mean Corpuscular HGB Conc 34.4 g/dL (30-55); Mean Corpuscular Hemoglobin 29.9 pg (27-33); Mean Platelet Volume 8.7 fL (7.4-10.4); Monocytes # 0.6 10^3/uL (0.2-0.9); Monocytes % 4.1 %; Neutrophils # 12.68 10^3/uL (1.8-7.7); Neutrophils % 83.7 %; Nucleated Red Blood Cells % 0 %; Platelet Count 375 10^3/cmm (157-399); Red Blood Count 4.78 10^6/uL (3.85-5.65); Red Cell Distribution Width 12.3 % (12.1-15.1); White Blood Count 15.15 10^3/uL (3.29-11.43)
--- NOTE | 2023-06-13 12:48 | CT_ITS ---
WS: [id number] CT ABDOMEN PELVIS TECHNIQUE: Noncontrast CT of the abdomen and pelvis with coronal and sagittal reformatted images. CLINICAL INFORMATION: Abdominal pain COMPARISON: 08/03/2018 DLP: 578.[address] scans at [facility] use at least one of these dose optimization techniques: automated e xposure control; mA and/or kV adjustment per patient size (includes targeted exams where dose is matc hed to clinical indication); or iterative reconstruction. FINDINGS: Adrenal glands are normal. No obstructing renal or ureteral calculi. A few pelvic phlebolit hs. Moderate RIGHT colon and cecal and transverse colon constipation. Low-lying cecum in the pelvis. No free fluid in the abdomen or pelvis. Lung bases are well aerated. Noncontrast liver is normal. Noncontrast spleen is normal. Normal noncon trast pancreas. Normal caliber abdominal aorta. Prior appendectomy and hysterectomy. Small fat-containing umbilical hernia. IMPRESSION: 1. No hydronephrosis in either kidney. No obstructing renal or ureteral calculi. 2. Moderate constipation RIGHT colon cecum and transverse colon. 3. Prior appendectomy. 4. Prior hysterectomy.
--- NOTE | 2023-06-13 12:56 | PC.PHAR ---
pt states she takes care of her own medications-pt states she has only been taking estradiol 0.5mg daily and mobic 7.5mg daily-pt states she hasnt taken her other meds for a week or two-pt states the dr nelson desvenlafaxine er 25mg daily-pt states she does not take celexa 10mg daily ext shows last filled 03/01/23 90d/s-pt states takes a multivitamin prn-
[2023-06-13 13:10] LABS: Alanine Aminotransferase 26 U/L (0-33); Albumin Level 4.8 g/dL (3.5-5.2); Alkaline Phosphatase 161 U/L (35-105); Anion Gap 19.1 (5-19); Aspartate Amino Transferase 22 U/L (0-32); Blood Urea Nitrogen 20 mg/dL (6-20); Carbon Dioxide 23 mmol/L (22-29); Chloride 97 mmol/L (98-107); Creatinine Clr Calc Pharmacy 90.5334; Globulin 3.7 g/dL (1.3-4.6); Glomerular Filtration Rate 80.7 mL/min (90-130); Glucose 143 mg/dL (65-115); Osmolality Calculated 285 mOsm/kg (285-295); Potassium 4.1 mmol/L (3.5-5.1); Sodium 135 mmol/L (136-145); Total Bilirubin 0.6 mg/dL (0.15-1.2); Total Protein 8.5 g/dL (6.6-8.7)
[2023-06-13 13:43] LABS: Protein Urine Not Tested (Negative); Specific Gravity, Urine 1.015 (1.005-1.030); Urine Appearance Clear (CLEAR); Urine Color Orange (Yellow); pH Urine 6 (5-7)
[2023-06-13 13:44] LABS: Add Urine Microscopic? YES; Bilirubin Urine Not Tested (Negative); Blood Urine 2+ (Negative); Glucose Urine UA Norm (Normal); Ketones Urine 1+ (Negative); Leukocyte Esterase Urine Negative (Negative); Nitrate Urine Not Tested (Negative); RBC Urine 15-25 /hpf (0-2); Squamous Epithelial Cell Urine 0-4 /hpf (0-5); Urobilinogen Urine Not Tested mg/dL (Negative); WBC Urine 0-4 /hpf (0-5)
[2023-06-13 13:45] LABS: Bacteria Urine 1+ /hpf; Mucus Urine TRACE /hpf
[2023-06-13 13:46] LABS: Add Urine Culture? No; Transitional Epi Cells Urine 0-4 /hpf
[2023-06-13 13:53] VITALS: BP 115/78; PULSE 84; RESP 18; O2SAT 99
[2023-06-13] MEDS: morphine 4 mg/mL SDV 1 mL IVP (14:05)
[2023-06-13 14:34] VITALS: BP 138/84; PULSE 93; RESP 18; O2SAT 97
[2023-06-13 15:14] VITALS: BP 142/94; PULSE 99; O2SAT 97
[2023-06-13] MEDS: metoclopramide 5 mg/mL SDV 2 mL 10 MG IVP (15:18)
== END 2023-06-13 15:35 | disposition home or self-care (01) ==
PROVIDERS: Emergency Provider Family Medicine; PCP Registered Nurse
DX: K59.00 Constipation, unspecified (principal); R10.30 Lower abdominal pain, unspecified; R10.2 Pelvic and perineal pain
CPT/HCPCS: 74176; 80053; 81001; 85025; 96361; 96374; 96375; 96376; 99285; J2270; J2405; J2765; J7030

== ENCOUNTER → 2024-01-08 12:06 | Outpatient (BNVA) | payer OTHER, SELFPAY | PROVIDERS: PCP Family Medicine; Visit Provider Family Medicine | DX: F41.9 Anxiety disorder, unspecified (principal); F32.9 Major depressive disorder, single episode, unspecified; E89.41 Symptomatic postprocedural ovarian failure; E03.9 Hypothyroidism, unspecified; G43.909 Migraine, unspecified, not intractable, without status migrainosus; G47.00 Insomnia, unspecified | CPT/HCPCS: 80053; 80061; 82607; 83036; 84443 ==

== ENCOUNTER → 2024-02-12 09:56 | Outpatient (BNVA) | payer OTHER, SELFPAY | PROVIDERS: PCP Family Medicine; Visit Provider Emergency Medicine | DX: J02.9 Acute pharyngitis, unspecified (principal); J01.90 Acute sinusitis, unspecified; B96.89 Other specified bacterial agents as the cause of diseases classified elsewhere | CPT/HCPCS: 87071; 87880 ==

== ENCOUNTER 2024-08-17 16:41 | Emergency (ER) | payer SELFPAY ==
[2024-08-17 16:44] VITALS: BP 146/93; PULSE 84; RESP 16; TEMP 36.7; O2SAT 99; BMI 29.7
--- NOTE | 2024-08-17 16:47 | XRR_ITS ---
PROCEDURE INFORMATION: Exam: XR Chest Exam date and time: 08/17/2024 5:00 PM Age: 39 years old Clinical indication: Chest pressure; Chest pain TECHNIQUE: Imaging protocol: Radiologic exam of the chest. Views: 1 view. COMPARISON: CR XR chest 2V* [id number] 22/04/2020 20:06 FINDINGS: Lungs: Monitoring leads overlie the chest. Lungs appear to be clear although slightly less well aerated than on an earlier study. Overlying soft tissues are moderately prominent accentuating lower chest densities. No consolidation. Pleural spaces: Costophrenic angles are well demarcated.. No pleural effusion. No pneumothorax. Heart/Mediastinum: Unremarkable. No cardiomegaly. Bones/joints: Unremarkable. XR/XR chest 1V portable [id number] IMPRESSION: No acute chest findings.
--- NOTE | 2024-08-17 16:48 | ECG_ITS ---
[facility] Test Date: 2024-08-17 Pat Name: Bridget Cha Department: Room: Gender: Female Engineer Sergeant: : 1985 Requested By: Aundrea Gomez Order Number: [id number] Mariee MD: Allen John M.D. Measurements Intervals [place] Rate: 99 P: 58 NM: 164 QRS: 49 QRSD: 76 T: 50 QT: 354 QTc: 455 Interpretive Statements SINUS RHYTHM No previous ECG available for comparison Electronically Signed On 08-19-2024 17:29:44 CDT by Allen John M.D. [email or web address]
--- NOTE | 2024-08-17 17:21 | ED_ITS ---
HPI - Chest Pain 2 General: Chief Complaint: Chest Pain Stated Complaint: chest pain Time Seen by Provider: 08/17/24 16:47 History of Present Illness: Patient is a 39-year-old female status post hysterectomy 5 years ago that presents with low-lying chest discomfort/epigastric discomfort. This penetrates into the back. It is associated with mild nausea. No shortness of breath. Patient utilize Tylenol for analgesic today however no relief. She has a history of migraines, for which she takes ibuprofen on time to time. Denies any issues after she is eating. No fevers, no recent cold or illness. Associated symptoms: Reports abdominal pain and nausea; Deny dyspnea, fever(s), palpitations or vomiting Related Data Home Medications ?Medication ?Instructions ?Recorded ?Confirmed estradiol 0.5 mg tablet 0.5 mg PO QAM 06/13/2302/11 multivitamin 1 tab PO DAILY PRN unknown 0 06/13/23 02/12/24 ondansetron HCl 4 mg/5 mL oral 4 mg PO Q8H PRN Nausea And Vomiting 06/13/23 02/12/24 solution Previous Rx's ?Medication ?Instructions ?Recorded gqdklaztrnbkyir-xyzmmudbgxthlke-KZ 5 ml PO Q6H PRN col d symptoms #118 02/12/24 2 mg-30 mg-10 mg/5 mL oral syrup mL (Bromfed DM) clarithromycin 500 mg tablet 500 mg PO BID 10 days #20 tabs 02/12/24 prednisone 20 mg tablet 40 mg (2 x 20 mg) PO DAILY 5 days 02/12/24 #10 tabs bupropion HCl 300 mg 24 hr tablet, 300 mg PO QAM mood #30 tabs 03/03/24 extended release pantoprazole 40 mg tablet,delayed 40 mg PO DAILY #30 t abs 08/17/24 release Allergies Allergy/AdvReac Type Severity Reaction Status Date / Time Alpha-Gal Allergy Unknown Verified 02/12/24 09:52 (Sdkgjdyzf-Ldqmv-1,3-Gala Iodine and Iodide Containing Allergy ALGY-Rash Verified 02/12/24 09:52 Produc latex Allergy ALGY-Rash Verified 02/12/24 09:52 Penicillins Allergy ALGY-Rash Verified 02/12/24 09:52 sulfamethoxazole (From Allergy ALGY-Rash Verified 02/12/24 09:52 Bactrim) trimethoprim (From Bactrim) Allergy ALGY-Rash Verified 02/12/24 09:52 Review of Systems 2 General: Reports: 10 or more systems reviewed and unremarkable except in HPI and below Const: Denies: fever(s) or chills Eyes: Denies: change in vision or blurry vision ENMT: Denies: throat pain or uvular edema Card: Reports: chest pain; Denies: palpitations or lightheadedness Resp: Denies: dyspnea or productive cough GI: Reports: abdominal pain and nausea; Denies: vomiting : Denies: flank pain or difficulty voiding Musc: Denies: neck pain or back pain Skin/Breast: Denies: rash or pruritus Neuro: Denies: headache(s) or numbness in extremities Psych: Denies: anxiety or depression Endo: Denies: polyuria or polydipsia Fredrick/Lymph: Denies: easy bruising or easy bleeding All/Imm: Denies: urticaria or throat swelling PFSH ED 2 PFSH: Medical History Post-viral cough syndrome Cough Chronic headaches Anxiety and depression Abnormal increased muscle tightness Reaction to chronic stress Dysuria Galactorrhea Dyspareunia in female Encounter for routine gynecological examination Surgical menopause, symptomatic (01/07/19) Status post LAVH with BSO for endometriosis. Started on HRT after surgery. Endometriosis of pelvis Found at time of appendectomy. Treated with hormonal suppression. Had LAVH with BSO on 01/07/2019. Surgical History History of laparoscopic-assisted vaginal hysterectomy (01/07/19) LAVH with BSO. Dx: Endometriosis. Performed by Dr. Simon at [facility] in [place], [place] History of laparoscopy (08/22/18) with cautery of endometriosis. Performed at time of appendectomy. Performed by Dr. Simon at [facility]. Incidental finding at time of appendectomy. History of laparoscopic appendectomy (08/22/18) Performed by Dr. Interiano at [facility] in [place], [place] History of breast augmentation (~2016) Performed in [place], [place] History of tonsillectomy Family History Unknown Diabetes maternal side of the family Heart disease paternal side of the family Social History Smoking and tobacco/nicotine status: unknown if used tobacco/nicotine Alcohol intake: current Alcohol intake frequency: holidays/special occasions only Substance/Drug Use: never Marital status: Number of children: 2 Number of grandchildren: 0 Current occupational status: employed Physical Exam 2 Const: COMMON NORMALS: no acute distress, average body habitus and patient oriented x3 EXAM LIMITATIONS: altered mental status GENERAL APPEARANCE: c ooperative, comfortable and well kempt ORIENTATION/CONSCIOUSNESS: Yes awake, Yes oriented to person and Yes oriented to place HENMT: THROAT: no uvular edema Eye: COMMON NORMALS: Equal, round and reactive pupils present, EOMs intact bilaterally and conjunctivae normal CONJUNCTIVA: Yes conjunctivae normal P UPIL: Yes Equal, round and reactive pupils present Neck/C-Spine: COMMON NORMALS: full ROM, no lymphadenopathy and supple Lymph: LYMPHATIC: no lymphadenopathy noted Chest: COMMONS NORMALS: normal inspection of the chest and normal palpation of entire chest wall Resp: COMMON NORMALS: normal respiratory effort and clear to auscultation bilaterally AUSCULTATION: clear to auscultation bilaterally Cardio: COMMON NORMALS: regular rate and regular rhythm RATE: regular rate RHYTHM: regular rhythm GI: PALPATION: Yes Tenderness to palpation present (GI) (epigastrum) : COMMON NORMALS: Yes no CVA tenderness BLADDER/KIDNEY EXAM: Yes no CVA tenderness Back/Pelvis: COMMON NORMALS: no CVA tenderness and thoracic and lumbar spine normal to inspection Extremity: COMMON NORMALS: normal to inspection, full ROM and capillary refill normal Neuro: COMMON NORMALS: patient oriented x3 SENSORIUM/ORIENTATION: Yes oriented to person and Yes oriented to place Psych: APPEARANCE: Yes well kempt Skin: COMMON NORMALS: no rashes or lesions noted and no wounds GENERAL SKIN EXAM: no rashes or lesions noted Course 2 Reevaluation(s): Reevaluation #1: Improved after GI cocktail. Will check lipase and ensure there is no gallbladder pathology. If lipase and LFTs are in range, will treat with PPI and hold ibuprofen for 1 week. Vital Signs: Vital signs: Vital Signs Temperature 98.0 F 08/17/24 16:44 Pulse Rate 94 08/17/24 18:41 Respiratory Rate 16 08/17/24 16:44 Blood Pressure 124/77 08/17/24 18:41 Pulse Oximetry 97 08/17/24 18:41 Oxygen Delivery Me thod Room Air 08/17/24 17:26 MDM - Chest Pain Medical Decision Making Patient is 39-year-old female without previous cardiac history with low-lying chest discomfort. Will rule out from a cardiac standpoint, however differentials include cholecystitis versus duodenal/gastric ulcer. She is a nondrinker of alcohol. Non-smoker. Will check a lipase, and attempt GI cocktail to see if this improves her symptoms. If this improves her symptoms, will recommend no ibuprofen for 1 week, and pantoprazole. Medical Records I reviewed the patient's medical records. Lab Data I reviewed the patient's lab results. 08/17/24 17:40 08/17/24 17:40 Radiology Impressions Chest X-Ray 08/17/24 16:47 IMPRESSION: No acute chest findings. Laboratory Results WBC 8.36 10^3/uL (3.29-11.43) 08/17/24 17:40 RBC 4.75 10^6/uL (3.85-5.65) 08/17/24 17:40 Hgb 13.10 g/dL (11.27-16.99) 08/17/24 17:40 Hct 39.3 % (36-47) 08/17/24 17:40 MCV 82.7 fl (85-98) L 08/17/24 17:40 MCH 27.6 pg (27-33) 08/17/24 17:40 MCHC 33.3 g/dL (30-55) 08/17/24 17:40 RDW 12.6 % (12.1-15.1) 08/17/24 17:40 Plt Count 354 10^3/cmm (157-399) 08/17/24 17:40 MPV 9.0 fL (7.4-10.4) 08/17/24 17:40 Neut % (Auto) 69.3 % 08/17/24 17:40 Lymph % (Auto) 23.4 % 08/17/24 17:40 [place] % (Auto) 4.1 % 08/17/24 17:40 Eos % (Auto) 2.6 % 08/17/24 17:40 Baso % (Auto) 0.4 % 08/17/24 17:40 Neut # (Auto) 5.79 10^3/uL (1.8-7.7) 08/17/24 17:40 Lymph # (Auto) 2.0 10^3/uL (0.8-4.8) 08/17/24 17:40 [place] # (Auto) 0.3 10^3/uL (0.2-0.9) 08/17/24 17:40 Eos # (Auto) 0.2 10^3/uL (0.0-0.8) 08/17/24 17:40 Baso # (Auto) 0.0 10^3/uL (0.0-0.1) 08/17/24 17:40 Nucleated RBC % (auto) 0 % 08/17/24 17:40 Nucleated RBCs # 0.0 /100WBC 08/17/24 17:40 D-Dimer 0.48 ug/mLFEU (0-0.59) 08/17/24 17:40 Sodium 141 mmol/L (136-145) 08/17/24 17:40 Potassium 3.9 mmol/L (3.5-5.1) 08/17/24 17:40 Chloride 104 mmol/L (98-107) 08/17/24 17:40 Carbon Dioxide 24 mmol/L (22-29) 08/17/24 17:40 Anion Gap 16.9 (5-19) 08/17/24 17:40 BUN 13 mg/dL (6-20) 08/17/24 17:40 Creatinine 0.6 mg/dL (0.5-0.9) 08/17/24 17:40 GFR Calculation 111.3 mL/min (90-130) 08/17/24 17:40 Glucose 133 mg/dL (65-115) H 08/17/24 17:40 Calculated Osmolality 294 mOsm/kg (285-295) 08/17/24 17:40 Calcium 9.6 mg/dL (8.5-10.5) 08/17/24 17:40 Total Bilirubin 0.3 mg/dL (0.15-1.2) 08/17/24 17:40 AST 37 U/L (0-32) H 08/17/24 17:40 ALT 27 U/L (0-33) 08/17/24 17:40 Alkaline Phosphatase 156 U/L (35-105) H 08/17/24 17:40 Troponin T Baseline < 6 ng/L (0-10) 08/17/24 17:40 NT-Pro-B Natriuret Pep < 36 pg/mL (0-125) 08/17/24 17:40 Total Protein 7.0 g/dL (6.6-8.7) 08/17/24 17:40 Albumin 4.5 g/dL (3.5-5.2) 08/17/24 17:40 Globulin 2.5 g/dL (1.3-4.6) 08/17/24 17:40 Lipase 44 U/L (13-60) 08/17/24 17:40 TSH 2.04 uIU/mL (0.27-4.20) 08/17/24 17:40 HCG, Qual Negative (Negative) 08/17/24 17:40 All radiology interpretation(s) finalized by discharge ED provider radiology interpretation(s): no acute EKG Data EKG 1: Interpretation: Normal sinus rhythm, normal axis Discharge Plan Discharge Patient Disposition: Home Clinical Impression: Gastritis and duodenitis Condition: Stable Prescriptions: New pantoprazole 40 mg tablet,delayed release (DR/EC) 40 mg PO DAILY Qty: 30 0RF No Action tqkcakpmorakyqy-txqitnhby-DV [Bromfed DM] 2-30-10 mg/5 mL syrup 5 ml PO Q6H PRN (Reason: cold symptoms) Qty: 118 0RF clarithromycin 500 mg tablet 500 mg PO BID 10 Days Qty: 20 0RF prednisone 20 mg tablet 40 mg PO DAILY 5 Days Qty: 10 0RF bupropion HCl 300 mg tablet extended release 24 hr 300 mg PO QAM Qty: 30 1RF ondansetron HCl 4 mg/5 mL solution 4 mg PO Q8H PRN (Reason: Nausea And Vomiting) estradiol 0.5 mg tablet 0.5 mg PO QAM multivitamin Tablet 1 tab PO DAILY PRN (Reason: unknown) Discharge Orders: Discharge ED (Routine); Ordered 08/17/24 Ordered By: Aundrea Gomez Referrals: Alvin Marrufo DO [Primary Care Provider, Family Practice] Discharge Diet: Usual diet Discharge Activity: Resume usual activity Patient Instructions: Gastritis (ED) Activity Restrictions/Additional Instructions: Avoid ibuprofen x 1 week. Utilize Tylenol for pain. Pantoprazole has been sent to your pharmacy. You will get 1 x 1 here in order to picker packer your medication tomorrow. Return to ED for worsening pain. Additional labs as discussed were in range. No cause for concern for acute cardiac etiology, dissection, or blood clot. Print Language: Spanish Coding Level of Care Code ED Poultry Feed Supervisor for Leigh Padgett
[2024-08-17 17:26] VITALS: BP 111/76; PULSE 106; O2SAT 100
[2024-08-17] MEDS: lidocaine 2% viscous 15 ML, aluminum-mag hydrox-simethicon 30 ML, sucralfate oral liq 1 GM PO (17:26)
[2024-08-17 17:44] LABS: Basophils % 0.4 %; Eosinophils # 0.2 10^3/uL (0.0-0.8); Eosinophils % 2.6 %; Hematocrit 39.3 % (36-47); Lymphocytes % 23.4 %; Mean Corpuscular HGB Conc 33.3 g/dL (30-55); Mean Corpuscular Hemoglobin 27.6 pg (27-33); Mean Corpuscular Volume 82.7 fl (85-98); Monocytes # 0.3 10^3/uL (0.2-0.9); Monocytes % 4.1 %; Neutrophils # 5.79 10^3/uL (1.8-7.7); Neutrophils % 69.3 %; Nucleated Red Blood Cells % 0 %; Platelet Count 354 10^3/cmm (157-399); Red Blood Count 4.75 10^6/uL (3.85-5.65); Red Cell Distribution Width 12.6 % (12.1-15.1); White Blood Count 8.36 10^3/uL (3.29-11.43)
[2024-08-17 17:59] LABS: D Dimer 0.48 ug/mLFEU (0-0.59)
[2024-08-17 18:03] LABS: HCG, Serum Qual Negative (Negative); Troponin(5th) Baseline < 6 ng/L (0-10)
[2024-08-17 18:18] LABS: Alanine Aminotransferase 27 U/L (0-33); Albumin Level 4.5 g/dL (3.5-5.2); Alkaline Phosphatase 156 U/L (35-105); Anion Gap 16.9 (5-19); Aspartate Amino Transferase 37 U/L (0-32); Blood Urea Nitrogen 13 mg/dL (6-20); Calcium 9.6 mg/dL (8.5-10.5); Carbon Dioxide 24 mmol/L (22-29); Chloride 104 mmol/L (98-107); Creatinine Clr Calc Pharmacy 123.0548; Globulin 2.5 g/dL (1.3-4.6); Glomerular Filtration Rate 111.3 mL/min (90-130); Glucose 133 mg/dL (65-115); Lipase 44 U/L (13-60); NT Pro B Type Natriuretic Pept < 36 pg/mL (0-125); Osmolality Calculated 294 mOsm/kg (285-295); Potassium 3.9 mmol/L (3.5-5.1); Sodium 141 mmol/L (136-145); Thyroid Stimulating Hormone 2.04 uIU/mL (0.27-4.20); Total Bilirubin 0.3 mg/dL (0.15-1.2)
[2024-08-17] MEDS: pantoprazole DR 40 mg Tablet PO (18:37)
[2024-08-17 18:41] VITALS: BP 124/77; PULSE 94; O2SAT 97
== END 2024-08-17 18:41 | disposition home or self-care (01) ==
PROVIDERS: Emergency Provider Physician Assistant; PCP Family Medicine
DX: K29.70 Gastritis, unspecified, without bleeding (principal); K29.80 Duodenitis without bleeding
CPT/HCPCS: 36415; 71045; 80053; 83690; 83880; 84443; 84484; 84703; 85025; 85378; 93005; 99285; J9999

== ENCOUNTER 2024-08-18 15:58 | Emergency (ER) | payer SELFPAY ==
[2024-08-18 16:01] VITALS: BP 140/82; PULSE 93; RESP 18; TEMP 36.4; O2SAT 98; BMI 29.5
--- NOTE | 2024-08-18 17:13 | USR_ITS ---
PROCEDURE INFORMATION: Exam: US Abdomen, Limited; Right Upper Quadrant Exam date and time: 08/18/2024 5:47 PM Age: 39 years old Clinical indication: Abdominal pain; Generalized; Prior surgery; Surgery date: 6+ months; Surgery type: Appy, umbilical hernia; Additional info: Ruq pain TECHNIQUE: Imaging protocol: Real time ultrasound of the abdomen with image documentation. Limited exam focused on the right upper quadrant. COMPARISON: CT abdomen pelvis con [id number] 06/13/2023 1:39 PM FINDINGS: Liver: Normal. No masses. Gallbladder: The gallbladder demonstrates a single 8 mm gallstone. Gallbladder wall thickness is normal. Biliary ducts: Normal. No stones. No dilation. Pancreas: Visualized pancreas is unremarkable. Right kidney: Normal. No mass. No hydronephrosis. US/US gall bladder [id number] IMPRESSION: Cholelithiasis without obvious evidence of acute cholecystitis
--- NOTE | 2024-08-18 17:14 | ED_ITS ---
HPI - Abdominal Pain 2 General: Chief Complaint: Abdominal Pain Stated Complaint: abd pain/right side pain Time Seen by Provider: 08/18/24 17:09 Source: patient Mode of arrival: ambulatory Limitations: no limitations History of Present Illness: 39-year-old female states primary right upper quadrant pain over the last 2 weeks states pains been sharp in nature and is worsened today pain is currently 8 out of 10 denies any fevers denies any vomiting or diarrhea. Associated Symptoms: Reports nausea; Denies chills, diarrhea, dysuria, fever(s) and vomiting Related Data Home Medications ?Medication ?Instructions ?Recorded ?Confirmed estradiol 0.5 mg tablet 0.5 mg PO QAM 06/13/2302/11 multivitamin 1 tab PO DAILY PRN unknown 0 06/13/23 02/12/24 ondansetron HCl 4 mg/5 mL oral 4 mg PO Q8H PRN Nausea And Vomiting 06/13/23 02/12/24 solution Previous Rx's ?Medication ?Instructions ?Recorded sqqyzvfqhxjwbki-vjsclrqjyowyfwt-VQ 5 ml PO Q6H PRN col d symptoms #118 02/12/24 2 mg-30 mg-10 mg/5 mL oral syrup mL (Bromfed DM) clarithromycin 500 mg tablet 500 mg PO BID 10 days #20 tabs 02/12/24 prednisone 20 mg tablet 40 mg (2 x 20 mg) PO DAILY 5 days 02/12/24 #10 tabs bupropion HCl 300 mg 24 hr tablet, 300 mg PO QAM mood #30 tabs 03/03/24 extended release pantoprazole 40 mg tablet,delayed 40 mg PO DAILY #30 t abs 08/17/24 release hydrocodone 5 mg-acetaminophen 325 1 tab PO Q6H PRN pa in #14 tabs 08/18/24 mg tablet ondansetron 4 mg disintegrating 4 mg PO Q6H PRN nausea and 08/18/24 tablet vomiting #14 tabs Allergies Allergy/AdvReac Type Severity Reaction Status Date / Time Alpha-Gal Allergy Unknown Verified 08/18/24 16:04 (Vvnxoeoqb-Myhql-7,3-Gala Iodine and Iodide Containing Allergy ALGY-Rash Verified 08/18/24 16:04 Produc latex Allergy ALGY-Rash Verified 08/18/24 16:04 Penicillins Allergy ALGY-Rash Verified 08/18/24 16:04 sulfamethoxazole (From Allergy ALGY-Rash Verified 08/18/24 16:04 Bactrim) trimethoprim (From Bactrim) Allergy ALGY-Rash Verified 08/18/24 16:04 Review of Systems 2 Const: Denies: fever(s), chills, body aches or change in appetite ENMT: Denies: throat pain or dental pain Card: Denies: chest pain Resp: Denies: dyspnea GI: Reports: abdominal pain and nausea; Denies: vomiting or diarrhea : Denies: dysuria Musc: Denies: neck pain or back pain Skin/Breast: Denies: rash Neuro: Denies: headache(s) PFSH ED 2 PFSH: Medical History Post-viral cough syndrome Cough Chronic headaches Anxiety and depression Abnormal increased muscle tightness Reaction to chronic stress Dysuria Galactorrhea Dyspareunia in female Encounter for routine gynecological examination Surgical menopause, symptomatic (01/07/19) Status post LAVH with BSO for endometriosis. Started on HRT after surgery. Endometriosis of pelvis Found at time of appendectomy. Treated with hormonal suppression. Had LAVH with BSO on 01/07/2019. Surgical History History of laparoscopic-assisted vaginal hysterectomy (01/07/19) LAVH with BSO. Dx: Endometriosis. Performed by Dr. Simon at [facility] [place], [place] History of laparoscopy (08/22/18) with cautery of endometriosis. Performed at time of appendectomy. Performed by Dr. Simon at [facility]. Incidental finding at time of appendectomy. History of laparoscopic appendectomy (08/22/18) Performed by Dr. Interiano at [facility] in [place], [place] History of breast augmentation (~2015) Performed in [place], [place] History of tonsillectomy Family History Unknown Diabetes maternal side of the family Heart disease paternal side of the family Social History Smoking and tobacco/nicotine status: unknown if used tobacco/nicotine Alcohol intake: current Alcohol intake frequency: holidays/special occasions only Substance/Drug Use: never Marital status: Number of children: 2 Number of grandchildren: 0 Current occupational status: employed Physical Exam 2 Const: COMMON NORMALS: no acute distress, patient oriented x3 and healthy appearing HENMT: COMMON NORMALS: normocephalic and atraumatic HEAD & SCALP: n ormocephalic and atraumatic Eye: COMMON NORMALS: conjunctivae normal CONJUNCTIVA: Yes conjunctivae normal Neck/C-Spine: COMMON NORMALS: full ROM and supple Chest: COMMONS NORMALS: normal inspection of the chest Resp: COMMON NORMALS: normal respiratory effort, No retractions, No use of accessory muscles and clear to auscultation bilaterally AUSCULTATION: clear to auscultation bilaterally Cardio: COMMON NORMALS: regular rate, regular rhythm and No murmurs present (Cardio) RATE: regular rate RHYTHM: regular rhythm GI: COMMON NORMALS: Normal to inspection, nondistended, normoactive bowel sounds present, Soft to palpation and no masses PALPATION: Yes Soft to palpation and Yes Tenderness to palpation present (GI) Details: RUQ Extremity: COMMON NORMALS: normal to inspection and full ROM Neuro: COMMON NORMALS: patient oriented x3, moves all extremities and no focal motor deficits Psych: COMMON NORMALS: mental status grossly normal, Normal thought process present and cooperative THOUGHT PROCESS: Normal thought process present Skin: COMMON NORMALS: no rashes or lesions noted and no wounds GENERAL SKIN EXAM: no rashes or lesions noted Course 2 Vital Signs: Vital signs: Vital Signs Temperature 97.6 F 08/18/24 16:01 Pulse Rate 94 08/18/24 19:20 Respiratory Rate 14 08/18/24 19:20 Blood Pressure 135/86 08/18/24 19:20 Pulse Oximetry 99 08/18/24 19:20 Oxygen Delivery Me thod Room Air 08/18/24 19:20 MDM - Abdominal Pain Medical Decision Making Patient presents for abdominal pain abdominal pain is improved ultrasound and CT showed no acute findings blood work is normal as well no signs of acute cholecystitis we will get her follow-up with surgery will prescribe her pain medicine she is return if worsening. Medical Records I reviewed the patient's medical records. Lab Data I reviewed the patient's lab results. 08/18/24 17:31 08/18/24 17:31 Labs/Radiology: Radiology Impressions Gallbladder Ultrasound 08/18/24 17:13 IMPRESSION: Cholelithiasis without obvious evidence of acute cholecystitis Abdomen/Pelvis CT 08/18/24 18:05 IMPRESSION: No acute findings. Laboratory Results WBC 10.79 10^3/uL (3.29-11.43) 08/18/24 17: RBC 4.89 10^6/uL (3.85-5.65) 08/18/24 17: Hgb 13.70 g/dL (11.27-16.99) 08/18/24 17: Hct 40.3 % (36-47) 08/18/24 17: MCV 82.4 fl (85-98) L 08/18/24 17: MCH 28.0 pg (27-33) 08/18/24 17: MCHC 34.0 g/dL (30-55) 08/18/24 17: RDW 12.8 % (12.1-15.1) 08/18/24: Plt Count 360 10^3/cmm (157-399) 08/18/24 17: MPV 9.3 fL (7.4-10.4) 08/18/24 17: Neut % (Auto) 79.2 % 08/18/24 17: Lymph % (Auto) 15.2 % 08/18/24 17: [place] % (Auto) 4.4 % 08/18/24 17: Eos % (Auto) 0.6 % 08/18/24: Baso % (Auto) 0.2 % 08/18/24: Neut # (Auto) 8.55 10^3/uL (1.8-7.7) H 08/18/24 17: Lymph # (Auto) 1.6 10^3/uL (0.8-4.8) 08/18/24 17: [place] # (Auto) 0.5 10^3/uL (0.2-0.9) 08/18/24 17: Eos # (Auto) 0.1 10^3/uL (0.0-0.8) 08/18/24 17: Baso # (Auto) 0.0 10^3/uL (0.0-0.1) 08/18/24 17:31 Nucleated RBC % (auto) 0 % 08/18/24 17:31 Nucleated RBCs # 0.0 /100WBC 08/18/24 17:31 Sodium 140 mmol/L (136-145) 08/18/24 17: Potassium 4.1 mmol/L (3.5-5.1) 08/18/24 17: Chloride 102 mmol/L (98-107) 08/18/24 17:31 Carbon Dioxide 22 mmol/L (22-29) 08/18/24 17: Anion Gap 20.1 (5-19) H 08/18/24 17:31 BUN 11 mg/dL (6-20) 08/18/24 17: Creatinine 0.6 mg/dL (0.5-0.9) 08/18/24 17: GFR Calculation 111.3 mL/min (90-130) 08/18/24 17: Glucose 115 mg/dL (65-115) 08/18/24 17: Calculated Osmolality 290 mOsm/kg (285-295) 08/18/24 17: Calcium 9.6 mg/dL (8.5-10.5) 08/18/24 17: Total Bilirubin 1.2 mg/dL (0.15-1.2) 08/18/24 17:31 AST 238 U/L (0-32) H 08/18/24 17:31 ALT 143 U/L (0-33) H 08/18/24 17:31 Alkaline Phosphatase 228 U/L (35-105) H 08/18/24 17:31 Total Protein 7.7 g/dL (6.6-8.7) 08/18/24 17: Albumin 4.5 g/dL (3.5-5.2) 08/18/24 17: Globulin 3.2 g/dL (1.3-4.6) 08/18/24 17: Lipase 33 U/L (13-60) 08/18/24 17:31 HCG, Qual Positive (Negative) H 08/18/24 17:31 Ser , Semi-Qnt 4.10 mIU/mL 08/18/24 17:31 Urine Color Yellow (Yellow) 08/18/24 18:24 Urine Appearance Clear (CLEAR) 08/18/24 18:24 Urine pH 7.5 (5-7) 08/18/24 18:24 Ur Specific [place] 1.011 (1.005-1.030) 08/18/24 18:24 Urine Protein Negative (Negative) 08/18/24 18:24 Urine Glucose (UA) Negative (Normal) 08/18/24 18:24 Urine Ketones Negative (Negative) 08/18/24 18:24 Urine Blood Negative (Negative) 08/18/24 18:24 Urine Nitrate Negative (Negative) 08/18/24 18:24 Urine Bilirubin Negative (Negative) 08/18/24 18:24 Urine Urobilinogen 1.0 mg/dL (Negative) 08/18/24 18:24 Ur Leukocyte Esterase Negative (Negative) 08/18/24 18:24 Urine RBC 0-2 /hpf (0-2) 08/18/24 18:24 Urine WBC 0-5 /hpf (0-5) 08/18/24 18:24 Ur Squamous Epith Cells 6-10 /hpf (0-5) 08/18/24 18:24 Amorphous Sediment Not Reportable 08/18/24 18:24 Urine Bacteria 1+ /hpf (NONE) H 08/18/24 18:24 Hyaline Casts 0-4 /lpf H 08/18/24 18:24 All radiology interpretation(s) finalized by discharge Discharge Plan Discharge Patient Disposition: Home Clinical Impression: Abdominal pain Condition: Stable Prescriptions: New hydrocodone-acetaminophen 5-325 mg tablet 1 tab PO Q6H PRN (Reason: pain) Qty: 14 0RF ondansetron 4 mg tablet,disintegrating 4 mg PO Q6H PRN (Reason: nausea and vomiting) Qty: 14 0RF No Action ckrvlivvsoryljz-ewzaovrri-QM [Bromfed DM] 2-30-10 mg/5 mL syrup 5 ml PO Q6H PRN (Reason: cold symptoms) Qty: 118 0RF clarithromycin 500 mg tablet 500 mg PO BID 10 Days Qty: 20 0RF prednisone 20 mg tablet 40 mg PO DAILY 5 Days Qty: 10 0RF bupropion HCl 300 mg tablet extended release 24 hr 300 mg PO QAM Qty: 30 1RF pantoprazole 40 mg tablet,delayed release (DR/EC) 40 mg PO DAILY Qty: 30 0RF ondansetron HCl 4 mg/5 mL solution 4 mg PO Q8H PRN (Reason: Nausea And Vomiting) estradiol 0.5 mg tablet 0.5 mg PO QAM multivitamin Tablet 1 tab PO DAILY PRN (Reason: unknown) Discharge Orders: Discharge ED (Routine); Ordered 08/18/24 Ordered By: Luis Felipe Addison Referrals: Stan Mcnally MD [Physician, General Surgery] - 4-7 days Alvin Marrufo DO [Primary Care Provider, Family Practice] Discharge Diet: Advance as tolerated Discharge Activity: Resume usual activity Patient Instructions: Abdominal Pain (ED), Opioid Safety Print Language: Polish Coding Level of Care Code ED [employer] Culturist for Leigh Padgett
[2024-08-18] MEDS: ondansetron 2 mg/ML SDV 2 mL 4 MG IVP (17:24)
[2024-08-18 17:26] VITALS: RESP 16
[2024-08-18] MEDS: morphine 4 mg/mL SDV 1 mL IVP (17:26)
[2024-08-18] MEDS: sodium chloride 0.9% 1,000 ML 999 ML IV (17:26)
[2024-08-18 17:46] LABS: Basophils % 0.2 %; Eosinophils # 0.1 10^3/uL (0.0-0.8); Eosinophils % 0.6 %; Hematocrit 40.3 % (36-47); Lymphocytes # 1.6 10^3/uL (0.8-4.8); Lymphocytes % 15.2 %; Mean Corpuscular Volume 82.4 fl (85-98); Mean Platelet Volume 9.3 fL (7.4-10.4); Monocytes # 0.5 10^3/uL (0.2-0.9); Monocytes % 4.4 %; Neutrophils # 8.55 10^3/uL (1.8-7.7); Neutrophils % 79.2 %; Nucleated Red Blood Cells % 0 %; Platelet Count 360 10^3/cmm (157-399); Red Blood Count 4.89 10^6/uL (3.85-5.65); Red Cell Distribution Width 12.8 % (12.1-15.1); White Blood Count 10.79 10^3/uL (3.29-11.43)
[2024-08-18 17:47] VITALS: BP 112/77; PULSE 93; O2SAT 97
--- NOTE | 2024-08-18 18:05 | CTR_ITS ---
PROCEDURE INFORMATION: Exam: CT Abdomen And Pelvis With Contrast Exam date and time: 08/18/2024 7:02 PM Age: 39 years old Clinical indication: Abdominal pain; Generalized; Prior surgery; Surgery date: 6+ months; Surgery type: Hysterectomy; Additional info: Abd pain TECHNIQUE: Imaging protocol: Computed tomography of the abdomen and pelvis with contrast. Radiation optimization: All CT scans at this facility use at least one of these dose optimization techniques: automated exposure control; mA and/or kV adjustment per patient size (includes targeted exams where dose is matched to clinical indication); or iterative reconstruction. Contrast material: OMNIPAQUE 350; Contrast volume: 100 ml; Contrast route: INTRAVENOUS (IV); COMPARISON: CT abdomen pelvis wo con [id number] 06/13/2023 1:39 PM RADIATION DOSE METRICS: Total DLP (mGy-cm): 593.56 FINDINGS: Lungs: Lung bases are clear. No pleural effusion. Liver: Normal. No mass. Gallbladder and biliary ducts: Normal. No calcified stones. No ductal dilation. Pancreas: Normal. No ductal dilation. Spleen: Normal. No splenomegaly. Adrenal glands: Normal. No mass. Kidneys and ureters: Normal. No hydronephrosis. Stomach and bowel: Unremarkable. No obstruction. No mucosal thickening. Appendix: No evidence of appendicitis. Intraperitoneal space: Unremarkable. No free air. No significant fluid collection. Vasculature: Unremarkable. No abdominal aortic aneurysm. Lymph nodes: Unremarkable. No enlarged lymph nodes. Urinary bladder: Unremarkable as visualized. Reproductive: Unremarkable as visualized. Bones/joints: Unremarkable. No acute fracture. Soft tissues: There is a small umbilical hernia containing mesenteric fat. CT/CT abdomen pelvis w con* [id number] IMPRESSION: No acute findings.
[2024-08-18 18:07] LABS: Alanine Aminotransferase 143 U/L (0-33); Albumin Level 4.5 g/dL (3.5-5.2); Alkaline Phosphatase 228 U/L (35-105); Anion Gap 20.1 (5-19); Aspartate Amino Transferase 238 U/L (0-32); Blood Urea Nitrogen 11 mg/dL (6-20); Calcium 9.6 mg/dL (8.5-10.5); Carbon Dioxide 22 mmol/L (22-29); Chloride 102 mmol/L (98-107); Globulin 3.2 g/dL (1.3-4.6); Glomerular Filtration Rate 111.3 mL/min (90-130); Glucose 115 mg/dL (65-115); Lipase 33 U/L (13-60); Osmolality Calculated 290 mOsm/kg (285-295); Potassium 4.1 mmol/L (3.5-5.1); Sodium 140 mmol/L (136-145); Total Bilirubin 1.2 mg/dL (0.15-1.2); Total Protein 7.7 g/dL (6.6-8.7)
[2024-08-18 18:21] LABS: HCG, Serum Qual Positive (Negative)
[2024-08-18] MEDS: diphenhydrAMINE 50 mg/mL SDV 1mL IVP (19:09)
[2024-08-18] MEDS: methylPREDNISolone sod succ 40 mg/mL INJ IVP (19:10)
[2024-08-18 19:12] LABS: Bilirubin Urine Negative (Negative); Blood Urine Negative (Negative); Glucose Urine UA Negative (Normal); Ketones Urine Negative (Negative); Leukocyte Esterase Urine Negative (Negative); Nitrate Urine Negative (Negative); Protein Urine Negative (Negative); Specific Gravity, Urine 1.011 (1.005-1.030); Urine Appearance Clear (CLEAR); Urine Color Yellow (Yellow); pH Urine 7.5 (5-7)
[2024-08-18] MEDS: iohexol 350 mg/mL 500 mL Btl (per mL) IV (19:15)
[2024-08-18 19:18] LABS: Add Urine Microscopic? YES; Bacteria Urine 1+ /hpf; Hyaline Casts Urine 0-4 /lpf; RBC Urine 0-2 /hpf (0-2); WBC Urine 0-5 /hpf (0-5)
[2024-08-18 19:20] VITALS: BP 135/86; PULSE 94; RESP 14; O2SAT 99
[2024-08-18] MEDS: HYDROcodone-acetaminophen 5-325 mg Tablet 1 TAB PO (20:14)
[2024-08-18] MEDS: ondansetron hcl ODT 4 mg Tab PO (20:14)
[2024-08-18 20:19] VITALS: BP 129/82; PULSE 95; O2SAT 98
--- NOTE | 2024-08-21 10:17 | DCPLANNER ---
messaged gen surg for er f/u
== END 2024-08-18 20:32 | disposition home or self-care (01) ==
PROVIDERS: Emergency Provider Emergency Medicine; PCP Family Medicine
DX: R10.9 Unspecified abdominal pain (principal)
CPT/HCPCS: 74177; 76705; 80053; 81001; 83690; 84702; 84703; 85025; 96361; 96374; 96375; 99285; J1200; J2270; J2405; J2919; J7030; J9999; Q0162

== ENCOUNTER → 2024-08-29 10:17 | Outpatient (BNVA) | payer SELFPAY | PROVIDERS: PCP Family Medicine; Visit Provider Emergency Medicine | DX: R39.9 Unspecified symptoms and signs involving the genitourinary system (principal) | CPT/HCPCS: 81000 ==